=== PATIENT | female | born 2000 | race Caucasian/White ===

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

== ENCOUNTER 2020-06-08 16:47 | Emergency (ER) | payer BC ==
[2020-06-08] MEDS ORDERED: MAG HYDROX/AL HYDROX/SIMETH -MYLANTA- ORAL SUSPENSION PO ONE (17:28)
[2020-06-08] MEDS ORDERED: FAMOTIDINE 20 MG TABLET PO SCH (17:28)
[2020-06-08] MEDS ORDERED: SODIUM CHLORIDE 1,000 ML IV STA (17:28)
[2020-06-08] MEDS ORDERED: ONDANSETRON 4 MG/2 ML VIAL IVPUSH ONE (17:29)
[2020-06-08 17:30] VITALS: BP 129/93; PULSE 95; TEMP 98.6; BMI 31.8
[2020-06-08] MEDS ORDERED: FAMOTIDINE 20 MG/50 ML IVPB 20 MG/50 ML MG IVPB ONE ×2 (17:30→17:33)
[2020-06-08] MEDS ORDERED: MAG HYDROX/AL HYDROX/SIMETH 30 ML UNIT-DOSE CUP ONE (17:33)
[2020-06-08] MEDS ORDERED: ONDANSETRON 4 MG/2 ML VIAL ONE (17:33)
[2020-06-08 18:00] LABS: EPITHELIAL CELLS MODERATE /hpf; URINE MUCUS 2+
[2020-06-08 18:04] LABS: HEMATOCRIT 43.4 % (32.4-45.2); MCH 28.9 pg (25.7-33.7); MCHC 32.2 g/dl (32.0-36.0); MEAN CELL VOLUME 89.6 fl (80-96); MEAN PLT VOLUME 9.6 fl (7.5-11.1); PLATELET COUNT 236 K/MM3 (134-434); RBC 4.84 M/mm3 (3.60-5.2); WHITE BLOOD COUNT 11.2 K/mm3 (4.0-10.8)
[2020-06-08 18:18] LABS: ALBUMIN 4.6 g/dl (3.4-5.0); BILIRUBIN,TOTAL 0.5 mg/dl (0.2-1); CALCIUM 9.5 mg/dl (8.5-10); CREATININE 0.8 mg/dl (0.55-1.3); POTASSIUM 4.1 mmol/L (3.5-5.1); TOT PROT 7.9 g/dl (6.4-8.2)
== END 2020-06-08 19:15 | disposition home or self-care (01) ==
LOC: FER 16:47
PROC: 3E033GC Introduction of Other Therapeutic Substance into Peripheral Vein, Percutaneous Approach (ICD-10-PCS; principal; 2020-06-08)
PROC: 3E033GC Introduction of Other Therapeutic Substance into Peripheral Vein, Percutaneous Approach (ICD-10-PCS; 2020-06-08)
PROC: 3E0337Z Introduction of Electrolytic and Water Balance Substance into Peripheral Vein, Percutaneous Approach (ICD-10-PCS; 2020-06-08)
DX: R11.0 Nausea (principal); R10.84 Generalized abdominal pain
CPT/HCPCS: 36415; 80053; 81003; 81015; 81025; 83690; 85027; 87086; 99284-25

== ENCOUNTER 2020-09-16 00:08 | Emergency (ER) | payer SELFPAY ==
[2020-09-16 00:18] VITALS: BP 122/90; PULSE 98; TEMP 97.5; BMI 33.1
== END 2020-09-16 00:29 | disposition home or self-care (01) ==
LOC: FER 00:08
DX: R11.0 Nausea (principal); Z32.01 Encounter for pregnancy test, result positive
CPT/HCPCS: 81025; 99283-25